=== PATIENT | female | born 1990 | race Caucasian/White ===

== ENCOUNTER 2016-11-25 20:39 | Emergency (ER) | payer OTHER ==
[2016-11-25 20:58] VITALS: BP 136/86
[2016-11-25 21:58] LABS: BASOPHIL % 0.6 % (0-2); PLATELET COUNT 264 x10^3mcL (130-400)
[2016-11-25 22:03] LABS: CALCIUM 9.1 mg/dL (8.5-10.1); CARBON DIOXIDE 30.1 mmol/L (21-32); CHLORIDE SERUM 106 mmol/L (98-107); CREATININE SERUM 0.7 mg/dL (0.6-1.0); GFR1 > 60 mL/min; GLUCOSE SERUM 91 mg/dL (74-106); POTASSIUM SERUM 3.8 mmol/L (3.5-5.1); SODIUM SERUM 142 mmol/L (136-145)
[2016-11-25 22:20] LABS: ALBUMIN 3.9 g/dL (3.4-5.0); ALKALINE PHOSPHATASE 73 U/L (46-116); ALT/SGPT 20 U/L (14-59); AST/SGOT 15 U/L (15-37); TOTAL PROTEIN, SERUM 7.8 g/dL (6.4-8.2)
== END 2016-11-25 22:44 | disposition home or self-care (01) ==
LOC: ED 20:39
PROVIDERS: Emergency Medicine
DX: R20.2 Paresthesia of skin (principal)
CPT/HCPCS: 36415; J1170; J1885; Q0092; Q0162

== ENCOUNTER 2017-04-21 18:25 | Emergency (ER) | payer OTHER ==
[~2017-04-21] VITALS: Ht 172.7 cm; Wt 96.2 kg
[2017-04-21 18:45] VITALS: Ht 172.7 cm; Wt 96.2 kg
[2017-04-21 21:08] VITALS: BP 94/49
== END 2017-04-21 21:08 | disposition home or self-care (01) ==
LOC: ED 18:25
DX: R10.12 Left upper quadrant pain (principal); D27.1 Benign neoplasm of left ovary; M54.5 Low back pain; R11.0 Nausea

== ENCOUNTER 2018-01-13 22:14 | Emergency (ER) | payer OTHER ==
[~2018-01-13] VITALS: Ht 172.7 cm; Wt 98.9 kg
[2018-01-13 22:26] VITALS: BP 103/73; Ht 172.7 cm; Wt 98.9 kg
== END 2018-01-13 22:50 | disposition home or self-care (01) ==
LOC: ED 22:14
DX: J06.9 Acute upper respiratory infection, unspecified (principal); H92.09 Otalgia, unspecified ear